=== PATIENT | female | born 1940 | race Caucasian/White ===

== ENCOUNTER 2018-10-29 15:24 | Emergency (ER) | payer MEDICARE ==
--- NOTE | 2018-10-29 16:08 | RAD REPORT ---
EXAM DESCRIPTION: CT - Head Brain Wo Cont - 10/29/2018 3:54 pm CLINICAL HISTORY: Head injury status post fall COMPARISON: None. TECHNIQUE: Computed axial tomography of the head was obtained. IV contrast was not requested. All CT scans are performed using dose optimization technique as appropriate and may include automated exposure control or mA/KV adjustment according to patient size. FINDINGS: An intracranial bleed is not seen . The ventricles are normal in caliber. No extra-axial fluid collection is noted. Cerebral atrophy is noted Fluid within the sinuses/ mastoids is not seen. IMPRESSION: No acute intracranial abnormality is seen. If patient's symptoms persist MRI of the bra in would be recommended.
--- NOTE | 2018-10-29 16:28 | RAD REPORT ---
EXAM DESCRIPTION: RAD - Elbow Left 3 View - 10/29/2018 4:16 pm CLINICAL HISTORY: Left elbow pain status post trauma FINDINGS: Limited examination secondary to difficulty with patient positioning Oblique lucency is present within medial humeral epicondyle. Cortical irregularity involves the radia l neck. One of these likely represents a fracture given that joint effusion is present. No dislocation
--- NOTE | 2018-10-29 16:29 | RAD REPORT ---
EXAM DESCRIPTION: RAD - Knee Right 3 View - 10/29/2018 4:15 pm CLINICAL HISTORY: Right knee pain status post injury FINDINGS: No fracture or dislocation is seen. Osteoporosis
[2018-10-29] MEDS ORDERED: DERMABOND SKIN ADHESIVE TOP ONE (16:39)
[2018-10-29] MEDS ORDERED: TETANUS & DIPHTHERIA TOX,ADULT 0.5 ML VIAL ONE (17:06)
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
--- NOTE | 2018-10-29 17:09 | EDPHYS ---
Physician Documentation [facility] Name: June Croft Age: 78 yrs Sex: Female : 1940 Arrival Date: 10/29/2018 Time: 15:29 Bed 24 Private MD: ED Physician Darell Garvey HPI: 10/29 17:01 This 78 yrs old Female presents to ER via Wheelchair with complaints of Fall rn Injury, Laceration To Head. 17:01 Details of fall: The patient fell from an upright position, while walking. Onset: The rn symptoms/episode began/occurred just prior to arrival. Associated injuries: The patient sustained injury to the head, left elbow. Severity of symptoms: At their worst the symptoms were mild, in the emergency department the symptoms are unchanged. The patient has not experienced similar symptoms in the past. Reports tripped, fell, hit head and left arm landed behind her back. NO LOC, no vomiting, no seizure, no blood thinners. . Historical: - Allergies: 15:33 No Known Allergies; la1 - PMHx: 15:33 None; la1 - Immunization history:: Adult Immunizations up to date. - Social history:: Smoking status: Patient/guardian denies using tobacco. - Immunization history: Last tetanus immunization: unknown. - Ebola Screening: : No symptoms or risks identified at this time. - Family history:: not pertinent. - Hospitalizations: : No recent hospitalization is reported. ROS: 17:01 Constitutional: Negative for fever, chills, and weight loss, Eyes: Negative for injury, rn pain, redness, and discharge, Neck: Negative for injury, pain, and swelling, Cardiovascular: Negative for chest pain, palpitations, and edema, Respiratory: Negative for shortness of breath, cough, wheezing, and pleuritic chest pain, Abdomen/GI: Negative for abdominal pain, nausea, vomiting, diarrhea, and constipation, Back: Negative for injury and pain, MS/Extremity: + left arm injury and swelling Skin: + laceration to left forehead Neuro: Negative for headache, weakness, numbness, tingling, and seizure. Exam: 17:01 Constitutional: This is a well developed, well nourished patient who is awake, alert, rn and in no acute distress. Head/Face: 1.5 cm superficial laceration left forehead, mild venous bleeding noted, no depression, no laceration of galea. Eyes: Pupils equal round and reactive to light, extra-ocular motions intact. Lids and lashes normal. Conjunctiva and sclera are non-icteric and not injected. Cornea within normal limits. Periorbital areas with no swelling, redness, or edema. ENT: no oral trauma Neck: Trachea midline, no thyromegaly or masses palpated, and no cervical lymphadenopathy. Supple, full range of motion without nuchal rigidity, or vertebral point tenderness. No Meningismus. Chest/axilla: NOn-tender, no crepitus Back: No spinal tenderness. No costovertebral tenderness. Full range of motion. MS/ Extremity: Pulses equal, no cyanosis. Neurovascular intact. + mild painful ROM left elbow with medial swelling and tenderness, some grinding with ROM. Neuro: Awake and alert, GCS 15, oriented to person, place, time, and situation. Cranial nerves II-XII grossly intact. Motor strength 5/5 in all extremities. Sensory grossly intact. Cerebellar exam normal. Vital Signs: 15:33 Pulse 78; Resp 16; Temp 98.6; Pulse Ox 98% on R/A; Weight 55.79 kg; Height 5 ft. 6 in. la1 (167.64 cm); 15:33 BP 147 / 68; la1 16:51 BP 144 / 66; Pulse 68; Resp 17 S; Pulse Ox 95% on R/A; ca1 15:33 Body Mass Index 19.85 (55.79 kg, 167.64 cm) la1 [place] Coma Score: 15:40 Eye Response: spontaneous(4). Verbal Response: oriented(5). Motor Response: obeys ca1 commands(6). Total: 15. Trauma Score (Adult): 15:40 Eye Response: spontaneous(1); Verbal Response: oriented(1); Motor Response: obeys ca1 commands(2); Systolic BP: > 89 mm Hg(4); Respiratory Rate: 10 to 29 per min(4); Ladi Score: 15; Trauma Score: 12 Laceration: 17:01 Wound Repair of 1.5cm ( 0.6in ) subcutaneous laceration to forehead. Distal rn neuro/vascular/tendon intact. Wound prep: Moderate cleansing by nurse. Skin closed with 1 thin layer Adhesive skin closure using Dermabond. Dressed with steri-strips. Patient tolerated well. MDM: 15:38 Patient medically screened. rn 17:01 Differential diagnosis: closed head injury, contusion, fracture. Data reviewed: vital rn signs, nurses notes, radiologic studies, CT scan, plain films, and as a result, I will discharge patient. Test interpretation: by ED physician or midlevel provider: plain radiologic studies, Left elbow xray with joint effusion and possible humeral/radial head fracture, non-displaced.. Counseling: I had a detailed discussion with the patient and/or guardian regarding: the historical points, exam findings, and any diagnostic results supporting the discharge/admit diagnosis, radiology results, the need for outpatient follow up, to return to the emergency department if symptoms worsen or persist or if there are any questions or concerns that arise at home. Special discussion: Based on the patient's history, exam and DX evaluation, there is no indication for emergent intervention or inpatient TX. It is understood by the patient/guardian that if the SXs persist or worsen they need to return immediately for re-evaluation. I discussed with the patient/guardian in detail that at this point there is no indication for admission to the hospital. It is understood, however, that if the symptoms persist or worsen the patient needs to return immediately for re-evaluation. 10/29 15:43 Order name: CT Head Brain wo Cont; Complete Time: 16:34 rn 10/29 15:43 Order name: XRAY Elbow LEFT 3 view; Complete Time: 16:34 rn 10/29 15:43 Order name: XRAY Knee RIGHT 3 view; Complete Time: 16:34 rn 10/29 15:43 Order name: Wound Care; Complete Time: 15:49 rn 10/29 16:35 Order name: Splint - Elbow - Posterior; Complete Time: 18:00 rn 10/29 16:35 Order name: Sling; Complete Time: 18:00 rn Administered Medications: 17:09 Drug: Tetanus-Diphtheria Toxoid Adult 0.5 ml {Refractive Surgeon: SCONTO DIGITALE. Exp: ca1 06/19/2020. Lot #: [id number]. } Route: IM; Site: right deltoid; 17:47 Follow up: Response: No adverse reaction ca1 Disposition: 10/29/18 17:07 Discharged to Home. Impression: Superficial injury of head, Left elbow fracture, unspecified. - Condition is Stable. - Discharge Instructions: Cast or Splint Care, Adult, Elbow Fracture, Pediatric, Head Injury, Adult. - Prescriptions for Tylenol- Codeine #3 300-30 mg Oral Tablet - take 1 tablet by ORAL route every 6 hours As needed; 20 tablet. - Medication Reconciliation Form, Thank You Letter, Antibiotic Education, Prescription Opioid Use form. - Follow up: Scar Lewis MD; When: 5 - 6 days; Reason: Recheck today's complaints, Re-evaluation by your physician. - Problem is new. - Symptoms have improved. Signatures: Dispatcher [employer] EDMS Darell Garvey MD MD rn Major Elizabeth RN RN la1 Peg Barnhart RN RN ca1 Corrections: (The following items were deleted from the chart) 18:05 17:07 10/29/2018 17:07 Discharged to Home. Impression: Superficial injury of head; Left ca1 elbow fracture, unspecified. Condition is Stable. Forms are Medication Reconciliation Form, Thank You Letter, Antibiotic Education, Prescription Opioid Use. Follow up: Scar Lewis; When: 5 - 6 days; Reason: Recheck today's complaints, Re-evaluation by your physician. Problem is new. Symptoms have improved. rn
== END 2018-10-29 18:05 | disposition home or self-care (01) ==
LOC: ER 15:24
DX: S00.90XA Unspecified superficial injury of unspecified part of head, initial encounter (principal); S42.402A Unspecified fracture of lower end of left humerus, initial encounter for closed fracture; W01.0XXA Fall on same level from slipping, tripping and stumbling without subsequent striking against object, initial encounter; Y93.89 Activity, other specified; Y92.9 Unspecified place or not applicable
CPT/HCPCS: 70450; 90471; 90714; 99285

== ENCOUNTER 2019-01-29 20:48 | Emergency (ER) | payer MEDICARE ==
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
--- NOTE | 2019-01-29 22:23 | ER ---
Nurse's Notes [facility] Name: June Croft Age: 78 yrs Sex: Female : 1940 Arrival Date: 01/29/2019 Time: 21:04 Bed 5 Private MD: Bharat Beal Diagnosis: Contusion of right hand;Avulsion of skin right hand ;Superficial injury of head Presentation: 01/29 20:42 Presenting complaint: EMS states: that pt was walking to her car and didn't realized fc there was a curb to step off of and fell. Attempted to catch self with left hand and has a large skin tear and then hit head on left side along with left shoulder and left hip. Having pain to right hand and head. Transition of care: patient was not received from another setting of care. Onset of symptoms was January 29, 2019 at 20:15. Risk Assessment: Do you want to hurt yourself or someone else? Patient reports no desire to harm self or others. Initial Sepsis Screen: Does the patient meet any 2 criteria? HR > 90 bpm. Yes Does the patient have a suspected source of infection? No. Patient's initial sepsis screen is negative. Care prior to arrival: Bleeding of injury controlled. Injury dressed. 20:42 Method Of Arrival: EMS: [facility] 20:42 Acuity: SAMIA 3 fc Triage Assessment: 20:42 General: Appears uncomfortable, slender, Behavior is calm, cooperative, appropriate for age. Pain: Complains of pain in left hip, left shoulder, left head and right hand Pain currently is 10 out of 10 on a pain scale. Quality of pain is described as aching, Pain began 30 min ago. Is continuous, Aggravated by increased activity, repositioning. EENT: No deficits noted. Neuro: Level of Consciousness is awake, alert, obeys commands, Oriented to person, place, time, situation, Appropriate for age Reports headache in left. Cardiovascular: No deficits noted. Respiratory: Airway is patent Respiratory effort is even, unlabored, Respiratory pattern is regular, symmetrical, Breath sounds are clear bilaterally. GI: Abdomen is flat, Bowel sounds present X 4 quads. : No deficits noted. Derm: Skin is pink, warm \T\ dry. Wound noted dorsum of right hand Wound is 3 inches x 3.5 inches, skin tear with skin pulled back, bleeding controlled. Injury Description: Skin Tear to right hand. Historical: - Allergies: 21:12 No Known Allergies; fc - Home Meds: 21:12 None [Active]; fc - PMHx: 21:12 None; fc - PSHx: 21:12 None; fc - Immunization history:: Last tetanus immunization: unknown, Flu vaccine is not up to date. - Social history:: Smoking status: Patient/guardian denies using tobacco, Patient/guardian denies using alcohol, street drugs. - Ebola Screening: : Patient negative for fever greater than or equal to 101.5 degrees Fahrenheit, and additional compatible Ebola Virus Disease symptoms Patient denies exposure to infectious person Patient denies travel to an Ebola-affected area in the 21 days before illness onset. Screenin:07 Abuse screen: Denies threats or abuse. Nutritional screening: No deficits noted. fc Tuberculosis screening: No symptoms or risk factors identified. Fall Risk Fall in past 12 months (25 points). No secondary diagnosis (0 pts). No IV (0 pts). Ambulatory Aid- None/Bed Rest/Nurse Assist (0 pts). Gait- Normal/Bed Rest/Wheelchair (0 pts) Mental Status- Overestimates/Forgets Limitations (15 pts.). Total Ham Fall Scale indicates High Risk Score (45 or more points). Fall prevention measures have been instituted. Side Rails Up X 2 Placed Close to Nursing Station Frequent Obs/Assessments Occuring Family Present and informed to notify staff if the need to leave the bedside As available patient and family educated on Fall Prevention Program and Strategies. Assessment: 21:16 General: Appears in no apparent distress. uncomfortable, Behavior is calm, appropriate bb for age. Pain: Complains of pain in right hand. Neuro: Level of Consciousness is awake, alert, obeys commands, Oriented to person, place, situation. Cardiovascular: No deficits noted. Respiratory: Respiratory effort is even, labored. GI: No deficits noted. No signs and/or symptoms were reported involving the gastrointestinal system. Derm: Skin is pink, warm \T\ dry. Musculoskeletal: Circulation, motion, and sensation intact. 22:06 Reassessment: Patient and/or family updated on plan of care and expected duration. Pain bb level reassessed. Patient is alert, oriented x 3, equal unlabored respirations, skin warm/dry/pink. Miguelangel RAMIREZ at bedside bandaging pt's right hand, family at bedside, awaiting CT results. 22:57 Reassessment: Patient is alert, oriented x 3, equal unlabored respirations, skin bb warm/dry/pink. bandage to right hand clean, dry and intact, pt verbalized understanding of and agrees to plan of care discharge instructions given pt assisted to exit via wheelchair accompanied by family. Vital Signs: 20:42 BP 146 / 70; Pulse 98; Resp 18; Temp 98.7(O); Pulse Ox 100% on R/A; Weight 64.86 kg fc (R); Height 5 ft. 6 in. (167.64 cm) (R); Pain 10/10; 22:06 BP 133 / 67; Pulse 86; Resp 14 S; Pulse Ox 96% on R/A; bb 22:58 BP 125 / 67; Pulse 87; Resp 14 S; Pulse Ox 99% on R/A; bb 20:42 Body Mass Index 23.08 (64.86 kg, 167.64 cm) ED Course: 20:42 Arm band placed on Patient placed in an exam room, on a stretcher. fc 20:55 Wound care: to Skin Tear located on dorsum of right hand was cleaned with irrigated fc with dressed with steri strips, , Patient tolerated well. 21:04 Patient arrived in ED. fc 21:04 Bharat Beal DO is Private Physician. fc 21:05 Miguelangel Garcia PA is PHCP. jr8 21:05 Spencer Mckeon MD is Attending Physician. jr8 21:06 Triage completed. fc 21:07 Patient has correct armband on for positive identification. Bed in low position. Call fc light in reach. Side rails up X2. Pulse ox on. NIBP on. 21:07 No provider procedures requiring assistance completed. fc 21:16 Wendy Feliciano, RN is Primary Nurse. bb 21:34 Hand Right 3 View XRAY In Process Unspecified. EDMS 21:34 Elbow Left 3 View In Process Unspecified. EDMS 21:36 CT completed. Patient tolerated procedure well. Patient moved to CT via stretcher. nj Patient moved back from CT. 21:42 CT Head Brain wo Cont In Process Unspecified. EDMS 22:19 Velcro wrist splint applied to right wrist. fc 22:22 Jakob Rodrigues MD is Referral Physician. jr8 22:58 Patient did not have IV access during this emergency room visit. bb Administered Medications: No medications were administered Outcome: : Discharge ordered by MD. jr8 22:58 Discharged to home via wheelchair, with family. bb 22:58 Condition: stable 22:58 Discharge instructions given to patient, family, Instructed on discharge instructions, follow up and referral plans. wound care, Demonstrated understanding of instructions, follow-up care, wound care. 22:59 Patient left the ED. bb Signatures: Dispatcher [employer] EDMS Abby Whyte RN RN fc Wendy Feliciano RN RN bb Miguelangel Garcia PA PA jr8 Tyson Peterson Corrections: (The following items were deleted from the chart) 21:10 21:08 Wound care: to Skin Tear located on dorsum of right hand was cleaned with fc irrigated with dressed with steri strips, , Patient tolerated well. fc
[2019-01-29 23:29] VITALS: BP 125/67; O2SAT 99
--- NOTE | 2019-01-30 07:50 | RAD REPORT ---
EXAM DESCRIPTION: RAD - Elbow Left 3 View - 01/29/2019 9:42 pm CLINICAL HISTORY: Left elbow pain status post trauma FINDINGS: Comparison is made to an October 2018 examination Examination is limited secondary to difficulty with patient positioning. Subacute fracture of the medial humeral epicondyle is present. An acute fracture is not definitely seen. A joint effusion however is present. This can indicate an occult acute fracture. If clinically indicated further evaluation could be obtained with CT or MRI
--- NOTE | 2019-01-30 08:44 | RAD REPORT ---
EXAM DESCRIPTION: RAD - Hand Right 3 View - 01/29/2019 9:35 pm CLINICAL HISTORY: Right hand pain status post injury FINDINGS: No fracture or dislocation is seen. Osteoporosis Marked osteoarthritis first MCP joint.
--- NOTE | 2019-01-30 11:04 | RAD REPORT ---
EXAM DESCRIPTION: CT - Head Brain Wo Cont - 01/30/2019 1:37 am CLINICAL HISTORY: Head trauma. COMPARISON: 10/29/2018 TECHNIQUE: CT scan of the brain without IV contrast. This exam was performed according to our depa rtmental dose-optimization program, which includes automated exposure control, adjustment of the mA a nd/or kV according to patient size and/or use of iterative reconstruction technique. FINDINGS: The ventricles, cisterns, and sulci are age-appropriate. No evidence of acute infarction, intracranial hemorrhage, extra-axial fluid collection, or midline shift. Partial opacification of a f ew left-sided mastoid air cells. The paranasal sinuses are clear. No depressed skull fracture. IMPRESSION: No acute intracranial findings. Electronically signed by: Braden Raymundo MD 01/29/2019 10:00 PM PRINCIPLE SOFTWARE ENGINEER Due to temporary technical issues with the PACS/Fluency reporting system, reports are being signed by the in house radiologist as a courtesy to ensure prompt reporting. The interpreting radiologist is f ully responsible for the content of the report.
== END 2019-01-29 22:59 | disposition home or self-care (01) ==
LOC: ER 20:48
DX: S61.401A Unspecified open wound of right hand, initial encounter (principal); S00.90XA Unspecified superficial injury of unspecified part of head, initial encounter; W01.198A Fall on same level from slipping, tripping and stumbling with subsequent striking against other object, initial encounter; Y93.89 Activity, other specified; Y92.89 Other specified places as the place of occurrence of the external cause
CPT/HCPCS: 70450; 99284

== ENCOUNTER 2021-06-19 12:35 | Emergency (ER) | payer OTHER ==
--- OUTSIDE RECORDS SUMMARY | 2021-06-19 12:39 | XMS REPORT | Continuity of Care Document ---
:1940 Author Organization [facility] t Address [address] [place] [address] Care Team Providers Name Role Phone Chrissy METCALF Primary Care Physician Unavailable RADIOLOGY Attending Clinician Unavailable Radiology Attending Clinician Unavailable Payers Payer Name Policy Type Policy Number Effective Date Expiration Date Louisa ordaz [employer] [id number] 2020-03-11 00:00:00 SPRING Problems This patient has no known problems. Allergies, Adverse Reactions, Alerts Allergy Allergy Status Severity Reaction(s) Onset Inactive Treating Comm ents Source Name Type Date Date Clinician NO KNOWN Drug Active [facility] ALLERGIE Class ity of [facility] Social History Social Habit Start Date Stop Date Quantity Comments Source Exposure to Not sure [facility] SARS-CoV-2 (event) Medica l Branch Sex Assigned At [birth year] [facility] 00:00:00 00:00:00 Medical Branch Smoking Status Start Date Stop Date Source Unknown if ever smoked [facility] Medications This patient has no known medications. Procedures Procedure Date / Time Performed Performing Clinician Jason e DEXA AXIAL (HIP AND 2021-03-23 17:05:22 Requisition, Paper [facility] SPINE) Medical Branch CONSENT/REFUSAL FOR 2021-03-23 16:35:43 [facility]igned, [facility] TREATMENT CONSENT/REFUSAL FOR 2021-03-23 16:35:17 [facility] TREATMENT ASSIGNMENT OF BENEFITS 2021-03-23 16:34:52 Doctor Unassigned, No [facility] Medical Branch Encounters Start End Encounter Admission Attending Care Care Encounter Source Date/Time Date/Time Type Type Clinicians Facility Department ID 2021-06-30 2021-06-30 Outpatient R RADIOLOGY [facility] [id number] Univers 14:40:00 14:40:00 [id number] ity of [facility] 2021-06-30 2021-06-30 Outpatient R RADIOLOGY [facility] [id number] Univers 00:00:00 00:00:00 ity of [facility] 2021-03-23 2021-03-23 [facility] Radiology [facility] [id number] Univers 10:40:00 23:59:00 Encounter [place] [id number] ity of [place] [id number] [facility] [id number] [facility] [address] Branch 2021-03-23 2021-03-23 [facility] Radiology [facility] [id number] Univers 10:20:00 10:39:00 Encounter [place] [id number] ity of [place] [id number] [facility] [id number] [facility] [address] Branch 2021-03-23 2021-03-23 Outpatient R RADIOLOGY [facility] RAD [id number] Univers 00:00:00 10:39:00 ity [facility] Results This patient has no known results.
--- NOTE | 2021-06-19 13:06 | RAD REPORT ---
EXAM DESCRIPTION: CT - Stone Protocol - 06/19/2021 12:56 pm CLINICAL HISTORY: Flank pain. back pain, flank pain COMPARISON: No comparisons TECHNIQUE: Axial images were obtained without oral or IV contrast. Lack of contrast limits solid org an and vascular assessment. The [id number] spans the entirety of the system partially obscuring uppermost abdomen and lung bases. Coronal reformatted images were obtained and reviewed. All CT scans are performed using dose optimization technique as appropriate and may include automated exposure control or mA/KV adjustment according to patient size. FINDINGS: The lower lung ugarte are clear. Multiple liver cysts are suspected. No intra or extrahepatic biliary tree dilatation.Spleen is normal in size. The pancreas and adrenal glands are normal. No pathologic lymphadenopathy in the abdomen or pelvis. No urinary tract stones or obstructive uropathy. No bowel obstruction, free air, free fluid or abscess. Normal appendix noted.Significant fecal retent ion throughout the colon is seen. Moderate multilevel lumbar spondylosis is present greatest at the lower lumbar levels. There is a T11 compression deformity seen with loss of 50% vertebral body height. This appears likely acute. . IMPRESSION: No urinary tract stones or obstructive uropathy. Suspected acute [id number] central compression osteoporotic fracture T11 noted. No significant canal compromise. Loss of vertebral body height is estimated at 50%. Significant stool throughout the colon.
[2021-06-19] MEDS ORDERED: HYDROCODONE/APAP 5/325 MG TAB ONE (13:31)
--- NOTE | 2021-06-19 14:37 | EDPHYS ---
Physician Documentation [facility] Name: June Croft Age: 80 yrs Sex: Female : 1940 Arrival Date: 06/19/2021 Time: 12:39 Bed External Waiting Private MD: ED Physician Darell Garvey HPI: 06/19 12:43 This 80 yrs old Female presents to ER via Wheelchair with complaints of Back Pain. jmm 12:43 The patient presents with pain that is acute. Onset: The symptoms/episode jmm began/occurred acutely, 1 week(s) ago. The pain does not radiate. This is a 80-year-old female with no chronic conditions presents emerged department with lower back pain following a fall which occurred approximately week ago. Patient was seen at [facility] and prescribed naproxen with no relief.. Historical: - Allergies: 13:13 No Known Allergies; jd3 - Home Meds: 13:13 None [Active]; jd3 - PMHx: 13:13 None; jd3 - PSHx: 13:13 None; jd3 - Immunization history:: Adult Immunizations up to date, Client reports having NOT received the Covid vaccine. Flu vaccine is not up to date. - Social history:: Smoking status: Patient denies any tobacco usage or history of. ROS: 12:43 Constitutional: Negative for fever, chills, and weight loss, Cardiovascular: Negative jmm for chest pain, palpitations, and edema, Respiratory: Negative for shortness of breath, cough, wheezing, and pleuritic chest pain. 12:43 Back: Positive for pain with movement. 12:43 All other systems are negative. Exam: 12:43 Constitutional: This is a well developed, well nourished patient who is awake, alert, jmm and in no acute distress. Head/Face: atraumatic. Eyes: EOMI, no conjunctival erythema appreciated ENT: Moist Mucus Membranes Neck: Trachea midline, Supple Chest/axilla: Normal chest wall appearance and motion. Cardiovascular: Regular rate and rhythm. No edema appreciated Respiratory: Normal respirations, no respiratory distress appreciated Abdomen/GI: Non distended, soft 12:43 Back: pain, that is moderate, of the thoracic area and lumbar area. 12:43 Musculoskeletal/extremity: ROM: intact in all extremities. 12:43 Skin: Appearance: Color: normal in color. 12:43 Neuro: Orientation: is normal, Mentation: is normal, Memory: is normal. 12:43 Psych: Behavior/mood is pleasant, cooperative. Vital Signs: 13:14 BP 195 / 88; Pulse 75; Resp 16 S; Temp 97.4(TE); Pulse Ox 99% on R/A; Weight 56.7 kg jd3 (R); Height 5 ft. 6 in. (167.64 cm) (R); Pain 10/10; 15:45 BP 148 / 98; Pulse 74; Resp 15; Temp 99.7(O); Pulse Ox 99% on R/A; Pain 8/10; dw3 13:14 Body Mass Index 20.18 (56.70 kg, 167.64 cm) jd3 MDM: 13:28 Patient medically screened. [facility] 14:35 Data reviewed: vital signs, nurses notes. Counseling: I had a detailed discussion with briana the patient and/or guardian regarding: the historical points, exam findings, and any diagnostic results supporting the discharge/admit diagnosis, radiology results, the need for outpatient follow up, to return to the emergency department if symptoms worsen or persist or if there are any questions or concerns that arise at home. 06/19 12:42 Order name: CT Stone Protocol; Complete Time: 13:09 [facility] Administered Medications: 13:28 Drug: [place] (HYDROcodone-acetaminophen) 5 mg-325 mg 1 tabs Route: PO; jd3 15:45 Follow up: Response: No adverse reaction; No change in condition ss Disposition: 19:15 Co-signature as Attending Physician, Darell Garvey MD. rn Disposition Summary: 06/19/21 14:36 Discharge Ordered Location: Home [facility] Condition: Stable [facility] Diagnosis - T11 Vertebral Fracture [facility] Followup: [facility] - With: Private Physician - When: 2 - 3 days - Reason: Recheck today's complaints, Continuance of care, Re-evaluation by your physician Discharge Instructions: - Discharge Summary Sheet [facility] - Thoracic Spine Fracture [facility] Forms: - Medication Reconciliation Form [facility] - Thank You Letter [facility] - Antibiotic Education [facility] - Prescription Opioid Use [facility] Prescriptions: - Ibuprofen 600 mg Oral Tablet - take 1 tablet by ORAL route every 8 hours As needed take with food; 30 tablet; [facility] Refills: 0, Product Selection Permitted - Tramadol 50 mg Oral Tablet - take 1 tablet by ORAL route every 8 hours as needed; 12 tablet; Refills: 0, deandre Product Selection Permitted Signatures: Dispamandaer [employer] Mike Mclain PA PA jmm Nieto, Roman, MD MD rn Davies, Jonathon, RN RN jd3 Lizeth Gao RN ss
--- NOTE | 2021-06-19 14:37 | ER ---
Nurse's Notes [facility] Name: June Croft Age: 80 yrs Sex: Female : 1940 Arrival Date: 06/19/2021 Time: 12:39 Bed External Waiting [facility] MD: Diagnosis: T11 Vertebral Fracture Presentation: 06/19 13:12 Chief complaint: Patient states: "I am having back pain." Patient's son or daughter jd3 states: "I think she fell down about a week ago. I don't know if she bruised it or what happened.". Coronavirus screen: At this time, the client does not indicate any symptoms associated with coronavirus-19. Ebola Screen: No symptoms or risks identified at this time. Initial Sepsis Screen: Does the patient meet any 2 criteria? No. Patient's initial sepsis screen is negative. Does the patient have a suspected source of infection? No. Patient's initial sepsis screen is negative. Risk Assessment: Do you want to hurt yourself or someone else? Patient reports no desire to harm self or others. Onset of symptoms was June 08, 2021. 13:12 Method Of Arrival: Wheelchair jd3 13:12 Acuity: SAMIA 2 jd3 Triage Assessment: 13:23 General: Appears in no apparent distress. uncomfortable, Behavior is calm, cooperative, jd3 appropriate for age. Pain: Complains of pain in back Quality of pain is described as sharp, tender. EENT: No signs and/or symptoms were reported regarding the EENT system. Neuro: Level of Consciousness is awake, alert, obeys commands, Oriented to person, place, time, situation. Cardiovascular: Denies chest pain, Capillary refill < 3 seconds Patient's skin is warm and dry. Respiratory: Airway is patent Respiratory effort is even, unlabored, Respiratory pattern is regular, symmetrical, Denies cough, shortness of breath. GI: No signs and/or symptoms were reported involving the gastrointestinal system. : No signs and/or symptoms were reported regarding the genitourinary system. Derm: Skin is intact, Skin is dry, Skin is normal, Skin temperature is warm. Musculoskeletal: Circulation, motion, and sensation intact. Range of motion: intact in all extremities. Historical: - Allergies: 13:13 No Known Allergies; jd3 - Home Meds: 13:13 None [Active]; jd3 - PMHx: 13:13 None; jd3 - PSHx: 13:13 None; jd3 - Immunization history:: Adult Immunizations up to date, Client reports having NOT received the Covid vaccine. Flu vaccine is not up to date. - Social history:: Smoking status: Patient denies any tobacco usage or history of. Screenin:40 Abuse screen: Denies threats or abuse. Nutritional screening: No deficits noted. dw3 Tuberculosis screening: No symptoms or risk factors identified. Fall Risk Gait- Weak (10 pts.). Mental Status- Oriented to own ability (0 pts). Total Ham Fall Scale indicates No Risk (0-24 pts). 15:40 Abuse screen: Denies threats or abuse. dw3 Assessment: 15:51 General: Appears uncomfortable, Behavior is calm, cooperative, quiet. Pain: Complains dw3 of pain in back Pain currently is 8 out of 10 on a pain scale. Neuro: Level of Consciousness is awake, alert, obeys commands, Oriented to person, place, time, situation, Appropriate for age. Cardiovascular: Heart tones S1 S2 present. Respiratory: Airway is patent. GI: No signs and/or symptoms were reported involving the gastrointestinal system. : No signs and/or symptoms were reported regarding the genitourinary system. EENT: No signs and/or symptoms were reported regarding the EENT system. Derm: Skin is pink, warm \\T\\ dry. Musculoskeletal: No signs and/or symptoms reported regarding the musculoskeletal system. Vital Signs: 13:14 BP 195 / 88; Pulse 75; Resp 16 S; Temp 97.4(TE); Pulse Ox 99% on R/A; Weight 56.7 kg jd3 (R); Height 5 ft. 6 in. (167.64 cm) (R); Pain 10/10; 15:45 BP 148 / 98; Pulse 74; Resp 15; Temp 99.7(O); Pulse Ox 99% on R/A; Pain 8/10; dw3 13:14 Body Mass Index 20.18 (56.70 kg, 167.64 cm) jd3 ED Course: 12:39 Patient arrived in ED. mr 12:41 Mike Suárez PA is PHCP. [facility] 12:41 Darell Garvey MD is Attending Physician. jmm 12:56 Patient's name was called from ER jose. No response. jd3 12:58 CT Stone Protocol In Process Unspecified. EDMS 13:13 Triage completed. jd3 13:14 Arm band placed on Patient placed in waiting room, in a wheelchair, Patient notified of jd3 wait time. 15:40 pt's son is standing next to her wheelchair. dw3 15:40 No provider procedures requiring assistance completed. Patient did not have IV access dw3 during this emergency room visit. 15:50 Grace Izaguirre, RN is Primary Nurse. dw3 Administered Medications: 13:28 Drug: [place] (HYDROcodone-acetaminophen) 5 mg-325 mg 1 tabs Route: PO; jd3 15:45 Follow up: Response: No adverse reaction; No change in condition ss Outcome: 14:36 Discharge ordered by MD. m 15:40 Discharged to home via wheelchair, with family. dw3 15:40 Condition: good 15:40 Discharge instructions given to patient, family, Instructed on discharge instructions, follow up and referral plans. medication usage, Demonstrated understanding of instructions, follow-up care, medications, Prescriptions given X 2. 16:06 Patient left the ED. ss Signatures: Dispatcher [employer] EDMS Mike Suárez PA PA [facility] Susanne Hollingsworth mr Lizeth Gao, Jamil Owen RN, RN RN Grace Paul, RN RN dw3 Corrections: (The following items were deleted from the chart) 13:41 13:12 [facility] 16:[facility] 15:56 Abuse screen: Denies threats or abuse. 3 3 16:03 15:56 Nutritional screening: No deficits noted. 3 3 16:03 15:56 Tuberculosis screening: No symptoms or risk factors identified. 3 3 16:03 15:56 Fall Risk Gait- Weak (10 pts.). Mental Status- Oriented to own ability (0 pts). 3 Total Ham Fall Scale indicates No Risk (0-24 pts). 3 16:06 16:06 Response: No adverse reaction; No change in condition ss ss
[2021-06-19 17:35] VITALS: O2SAT 99
[2021-06-19 17:36] VITALS: BP 148/98; TEMP 99.7
== END 2021-06-19 16:06 | disposition home or self-care (01) ==
LOC: ER 12:35
DX: S22.089A Unspecified fracture of T11-T12 vertebra, initial encounter for closed fracture (principal); W18.30XA Fall on same level, unspecified, initial encounter
CPT/HCPCS: 74176; 76377; 99283